=== PATIENT | male | born 1980 | race African-American/Black ===

== ENCOUNTER 2020-07-24 00:09 | Emergency (ER) | payer MEDICAID, OTHER ==
[~2020-07-24] VITALS: Ht 182.9 cm; Wt 76.0 kg
[~2020-07-24 00:09] MED LIST: ACET-3161; ALBUTEROL; MOTRIN; VICODIN
[2020-07-24 00:14] VITALS: BP 144/101
== END 2020-07-24 00:49 | disposition left against medical advice (07) ==
LOC: ER 00:09
DX: M79.606 Pain in leg, unspecified (principal); Z53.21 Procedure and treatment not carried out due to patient leaving prior to being seen by health care provider
CPT/HCPCS: 93005

== ENCOUNTER 2024-02-03 19:55 | Emergency (ER) | payer MEDICAID ==
[~2024-02-03] VITALS: Ht 170.2 cm; Wt 66.0 kg
[~2024-02-03 19:55] MED LIST changes: -ACET-3161; -ALBUTEROL; +CHLO25CA11 MT; +FOLI-43 PO; -MOTRIN; +MULT-230 MT; +THIA100T72 PO; -VICODIN
[2024-02-03 19:57] VITALS: TEMP 98.4; O2SAT 99
[2024-02-03 20:25] LABS: BASOPHILS % 0.9 % (0.0-2.0); EOSINOPHILS % 7.3 % (0.0-5.0); HEMATOCRIT. 27.5 % (42.0-52.0); HEMOGLOBIN. 8.6 g/dL (14.0-18.0); LYMPHOCYTES % 24.1 % (20.0-50.0); MEAN CORPUSCULAR HEMOGLOBIN 22.6 pg (28.0-32.0); MEAN CORPUSCULAR HGB CONC 31.4 g/dL (31.0-37.0); MONOCYTES % 14.5 % (2.0-8.0); NEUTROPHILS % 53.2 % (40.0-76.0); PLATELET 461 x1000/uL (130-400); RED BLOOD CELL COUNT 3.81 mill/uL (4.7-6.1); RED CELL DISTRIBUTION WIDTH 26.5 % (11.6-14.6); WHITE BLOOD COUNT 10.6 x1000/uL (4.5-11.0)
[2024-02-03 20:36] LABS: INR 1.3; PARTIAL THROMBOPLASTIN TIME 36.2 sec (23.4-31.0)
[2024-02-03 20:38] LABS: ALANINE AMINOTRANSFERASE 71 IU/L (10-49); ALBUMIN 4.2 g/dL (3.2-4.8); ASPARTATE AMINOTRANSFERASE 82 IU/L (<34); BILIRUBIN TOTAL 0.4 mg/dL (0.1-1.0); CALCIUM 8.9 mg/dL (8.7-10.4); CARBON DIOXIDE 28 mEq/L (21-32); CHLORIDE 103 mEq/L (98-107); CREATININE 0.8 mg/dL (0.6-1.3); GLUCOSE 102 mg/dL (70-105); POTASSIUM 3.8 mEq/L (3.5-5.1); SODIUM 138 mEq/L (136-145); UREA NITROGEN BLOOD 10 mg/dL (9-23)
[2024-02-03 20:55] LABS: DIFFERENTIAL COMMENT 1
[2024-02-03] MEDS: HYDROCODONE/ACETAMINOPHEN 5/325MG TABLET PO ONE (22:00)
[2024-02-03 22:56] VITALS: BP 142/76; PULSE 88; RESP 14
== END 2024-02-03 22:58 | disposition home or self-care (01) ==
LOC: ER 19:57
DX: I97.630 Postprocedural hematoma of a circulatory system organ or structure following a cardiac catheterization (principal); F41.9 Anxiety disorder, unspecified; J45.909 Unspecified asthma, uncomplicated; I10 Essential (primary) hypertension
CPT/HCPCS: 36415; 71046; 80053; 85025; 86850; 86900; 99284

== ENCOUNTER 2024-03-08 15:13 | Inpatient (IN) | payer OTHER ==
[~2024-03-08] VITALS: Ht 180.3 cm; Wt 70.3 kg
[~2024-03-08 15:13] MED LIST changes: +AMLO5TAB88 MT; -CHLO25CA11 MT; +FAMO20TA8 MT; +FLUO10CA25 MT; +GABA-532 MT; +MULT-1116 MT; +OLAN10TA72 MT; +ONDA8TAB59 MT; +OXYC-662 MT; +THIA250T3 MT; +TRAM50TA3 MT; +XAR15 MT
[2024-03-08 15:52] LABS: BASOPHILS % 0.9 % (0.0-2.0); EOSINOPHILS % 2.8 % (0.0-5.0); HEMATOCRIT. 30.9 % (42.0-52.0); HEMOGLOBIN. 9.7 g/dL (14.0-18.0); LYMPHOCYTES % 24.2 % (20.0-50.0); MEAN CORPUSCULAR HEMOGLOBIN 24.8 pg (28.0-32.0); MEAN CORPUSCULAR HGB CONC 31.4 g/dL (31.0-37.0); MEAN PLATELET VOLUME 7.4 fl (7.4-10.4); MONOCYTES % 10.1 % (2.0-8.0); PLATELET 485 x1000/uL (130-400); RED BLOOD CELL COUNT 3.91 mill/uL (4.7-6.1); RED CELL DISTRIBUTION WIDTH 23.6 % (11.6-14.6); WHITE BLOOD COUNT 11.7 x1000/uL (4.5-11.0)
[2024-03-08 15:53] LABS: ADD RBC MORPHOLOGY YES; DIFFERENTIAL COMMENT 1
[2024-03-08] MEDS: MORPHINE SULFATE 4 MG/ML INJ (FOR IV/IM USE) IV STA (15:56)
[2024-03-08] MEDS: SODIUM CHLORIDE 0.9% 1,000 ML IV ONE (15:56)
[2024-03-08] MEDS: ONDANSETRON HCL 4MG/2ML INJ IV STA (15:56)
[2024-03-08 16:02] LABS: CHLORIDE 109 mEq/L (98-107); POTASSIUM 3.4 mEq/L (3.5-5.1); SODIUM 141 mEq/L (136-145)
[2024-03-08 16:03] LABS: CALCIUM 8.9 mg/dL (8.7-10.4); CARBON DIOXIDE 25 mEq/L (21-32)
[2024-03-08 16:05] LABS: D-DIMER 0.64 mg/L FEU (<0.50); INR 1.1; PROTHROMBIN TIME 11.9 sec (9.6-11.0)
[2024-03-08 16:08] LABS: CREATININE 0.8 mg/dL (0.6-1.3); GLUCOSE 106 mg/dL (70-105); UREA NITROGEN BLOOD 6 mg/dL (9-23)
[2024-03-08 16:09] LABS: LACTIC ACID 2.1 mmol/L (0.4-2.0)
[2024-03-08 16:10] LABS: ALANINE AMINOTRANSFERASE 13 IU/L (10-49); ALBUMIN 3.6 g/dL (3.2-4.8); ASPARTATE AMINOTRANSFERASE 22 IU/L (<34); BILIRUBIN TOTAL 0.7 mg/dL (0.1-1.0); PROTEIN TOTAL 7.2 g/dL (6.0-8.3)
[2024-03-08 16:11] LABS: ETHANOL BLOOD < 10 mg/dL (<10); TROPONIN I HIGH SENSITIVITY < 4 ng/L (3.0-53)
[2024-03-08 17:25] LABS: ANISOCYTOSIS 2+; HYPOCHROMASIA 1+; MICROCYTOSIS 1+; OVALOCYTES 2+; PLATELET ESTIMATE INCREASED
[2024-03-08 17:26] LABS: TROPONIN I HIGH SENSITIVITY < 4 ng/L (3.0-53)
[2024-03-08 18:55] LABS: TROPONIN I HIGH SENSITIVITY < 4 ng/L (3.0-53)
[2024-03-08] MEDS: MORPHINE SULFATE 4 MG/ML INJ (FOR IV/IM USE) IV ONE (20:44)
[2024-03-08] MEDS ORDERED: IOHEXOL-350 100 ML BOTTLE ONE (22:28)
[2024-03-08 23:30] VITALS: BP 125/85; PULSE 82; RESP 18; TEMP 96.6
[2024-03-09] MEDS ORDERED: IPRATROPIUM/ALBUTEROL 0.5-3(2.5)MG/3ML NEB HHN PRN
[2024-03-09] MEDS ORDERED: MORPHINE SULFATE 2 MG/ML CPJ (NOT FOR IM USE) IV PRN
[2024-03-09] MEDS ORDERED: ONDANSETRON HCL 4MG/2ML INJ IV PRN
[2024-03-09] MEDS ORDERED: MORPHINE SULFATE 2 MG/ML CPJ (NOT FOR IM USE) IV NR (00:15)
[2024-03-09] MEDS ORDERED: OXYCODONE HCL 5MG TABLET PO PRN (00:15)
[2024-03-09 00:41] VITALS: BP 125/85; PULSE 82; RESP 20; TEMP 96.6
[2024-03-09] MEDS: MORPHINE SULFATE 2 MG/ML CPJ (NOT FOR IM USE) IV PRN (01:16)
[2024-03-09] MEDS: DEXT 5%/0.45% NACL KCL 20MEQ/L 1,000 ML IV SCH (03:27)
[2024-03-09 04:00] VITALS: BP 128/80; PULSE 85; RESP 19; TEMP 97.3
[2024-03-09 08:00] VITALS: BP 132/98; PULSE 85; RESP 18; TEMP 97.8
[2024-03-09] MEDS ORDERED: GABAPENTIN 300MG CAPSULE PO SCH (09:00)
[2024-03-09] MEDS ORDERED: THIAMINE HCL 100MG TABLET PO SCH (09:00)
[2024-03-09] MEDS ORDERED: AMLODIPINE 5MG TABLET PO SCH (09:00)
[2024-03-09] MEDS ORDERED: ENOXAPARIN 40MG/0.4ML SYR SUBCUT SCH (09:00)
[2024-03-09] MEDS ORDERED: FLUOXETINE HCL 10 MG CAPSULE PO SCH (09:00)
[2024-03-09 12:00] VITALS: BP 138/95; PULSE 83; RESP 18; TEMP 97.5
[2024-03-09] MEDS: ONDANSETRON HCL 4MG/2ML INJ IV PRN (12:53)
[2024-03-09 16:00] VITALS: BP 130/96; PULSE 92; RESP 18; TEMP 97
[2024-03-09] MEDS ORDERED: NALOXONE HCL 0.4MG/ML VIAL IV PRN (16:15)
[2024-03-09 20:00] VITALS: BP 130/91; PULSE 88; RESP 20; TEMP 97.9
[2024-03-09] MEDS ORDERED: OLANZAPINE 10MG TABLET PO SCH (21:00)
[2024-03-10] VITALS: BP 117/81; PULSE 86; RESP 20; TEMP 97.4
[2024-03-10 04:00] VITALS: BP 97/63; PULSE 78; RESP 20; TEMP 98.1
[2024-03-10 06:05] LABS: IRON 29 ug/dL (65-175)
[2024-03-10 06:06] LABS: FOLIC ACID (FOLATE) SERUM 12.69 ng/mL (>5.38); VITAMIN B12 SERUM 590 pg/mL (211-911)
[2024-03-10 06:07] LABS: FERRITIN 335 ng/mL (22-322)
[2024-03-10 06:09] LABS: TOTAL IRON BINDING CAPACITY 263 ug/dl (250-425)
[2024-03-10] MEDS: PANTOPRAZOLE SODIUM 40 MG/VIAL IV SCH (08:27)
[2024-03-10] MEDS: KETOROLAC 30MG/ML VIAL IV PRN (13:21)
[2024-03-10] MEDS ORDERED: MAGNESIUM/ALUMINUM HYDROXIDE/SIMETHICONE 30ML UDC PO PRN (13:30)
[2024-03-10] MEDS: MAGNESIUM/ALUMINUM HYDROXIDE/SIMETHICONE 30ML UDC PO NR (15:27)
[2024-03-10 16:02] LABS: BASOPHILS % 0.9 % (0.0-2.0); DIFFERENTIAL COMMENT 0; EOSINOPHILS % 4.2 % (0.0-5.0); HEMATOCRIT. 29.4 % (42.0-52.0); HEMOGLOBIN. 9.4 g/dL (14.0-18.0); LYMPHOCYTES % 16.3 % (20.0-50.0); MEAN CORPUSCULAR HEMOGLOBIN 24.9 pg (28.0-32.0); MEAN CORPUSCULAR VOLUME 77.9 fL (80.0-94.0); MEAN PLATELET VOLUME 8.4 fl (7.4-10.4); NEUTROPHILS % 64.6 % (40.0-76.0); PLATELET 402 x1000/uL (130-400); RED BLOOD CELL COUNT 3.77 mill/uL (4.7-6.1); RED CELL DISTRIBUTION WIDTH 21.4 % (11.6-14.6); WHITE BLOOD COUNT 9.7 x1000/uL (4.5-11.0)
[2024-03-10 16:19] LABS: CALCIUM 8.6 mg/dL (8.7-10.4); CARBON DIOXIDE 25 mEq/L (21-32); CHLORIDE 106 mEq/L (98-107); POTASSIUM 3.7 mEq/L (3.5-5.1); SODIUM 137 mEq/L (136-145)
[2024-03-10 16:24] LABS: CREATININE 0.8 mg/dL (0.6-1.3)
[2024-03-10 16:25] LABS: GLUCOSE 89 mg/dL (70-105)
[2024-03-10 16:37] LABS: UREA NITROGEN BLOOD < 5 mg/dL (9-23)
[2024-03-10 20:00] VITALS: BP 137/90; PULSE 84; RESP 20; TEMP 97.5
[2024-03-11] VITALS: BP 104/69; PULSE 77; RESP 18; TEMP 97.5
[2024-03-11 04:00] VITALS: BP 116/85; PULSE 81; RESP 18; TEMP 97.8
[2024-03-11 06:57] LABS: BASOPHILS % 1.3 % (0.0-2.0); CHLORIDE 108 mEq/L (98-107); EOSINOPHILS % 6.5 % (0.0-5.0); HEMATOCRIT. 28.9 % (42.0-52.0); HEMOGLOBIN. 9.4 g/dL (14.0-18.0); LYMPHOCYTES % 20.8 % (20.0-50.0); MEAN CORPUSCULAR HEMOGLOBIN 25.1 pg (28.0-32.0); MEAN CORPUSCULAR HGB CONC 32.5 g/dL (31.0-37.0); MEAN CORPUSCULAR VOLUME 77.2 fL (80.0-94.0); MEAN PLATELET VOLUME 8.6 fl (7.4-10.4); MONOCYTES % 13.8 % (2.0-8.0); NEUTROPHILS % 57.6 % (40.0-76.0); PLATELET 398 x1000/uL (130-400); POTASSIUM 4.1 mEq/L (3.5-5.1); RED BLOOD CELL COUNT 3.74 mill/uL (4.7-6.1); RED CELL DISTRIBUTION WIDTH 22.3 % (11.6-14.6); SODIUM 138 mEq/L (136-145); WHITE BLOOD COUNT 8.1 x1000/uL (4.5-11.0)
[2024-03-11 06:58] LABS: CALCIUM 8.8 mg/dL (8.7-10.4); CARBON DIOXIDE 25 mEq/L (21-32)
[2024-03-11 07:03] LABS: CREATININE 0.7 mg/dL (0.6-1.3); GLUCOSE 93 mg/dL (70-105)
[2024-03-11 07:05] LABS: ALANINE AMINOTRANSFERASE < 7 IU/L (10-49); ALBUMIN 3.2 g/dL (3.2-4.8); ASPARTATE AMINOTRANSFERASE 16 IU/L (<34); UREA NITROGEN BLOOD < 5 mg/dL (9-23)
[2024-03-11 07:06] LABS: BILIRUBIN TOTAL 0.6 mg/dL (0.1-1.0); PROTEIN TOTAL 6.7 g/dL (6.0-8.3)
[2024-03-11 07:08] LABS: INR 1.1; PROTHROMBIN TIME 12.2 sec (9.6-11.0)
[2024-03-11 07:25] LABS: DIFFERENTIAL COMMENT 1
[2024-03-11 08:00] VITALS: BP 112/89; PULSE 76; RESP 20; TEMP 96.8
[2024-03-11] MEDS: HYDROCODONE/ACETAMINOPHEN 5/325MG TABLET PO PRN (09:25)
[2024-03-11] MEDS ORDERED: SIMETHICONE 40 MG/0.6 ML 15ML ONE (13:54)
[2024-03-11 14:00] VITALS: BP 126/85; PULSE 77; RESP 18; TEMP 97.8
[2024-03-11] MEDS ORDERED: ONDANSETRON HCL 4MG/2ML INJ IV PRN (14:15)
[2024-03-11] MEDS ORDERED: MEPERIDINE HCL/PF 25MG/ML CPJ IV PRN (14:15)
[2024-03-11] MEDS ORDERED: LABETALOL 5MG/ML SYR 20 MG/4 ML SYRINGE IV PRN (14:15)
[2024-03-11] MEDS ORDERED: PROPOFOL 200MG/20ML VIAL IV ONE (14:27)
[2024-03-11] MEDS: HYDROMORPHONE HCL/PF 2MG/ML CPJ IV PRN (15:14)
[2024-03-11 16:00] VITALS: BP 106/84; PULSE 79; RESP 20; TEMP 98.1
[2024-03-11 20:00] VITALS: BP 119/87; PULSE 80; RESP 18; TEMP 97.8
[2024-03-12] VITALS: BP 108/70; PULSE 75; RESP 18; TEMP 97.1
[2024-03-12 04:00] VITALS: BP 115/85; PULSE 81; RESP 17; TEMP 98.4
[2024-03-12 08:00] VITALS: BP 119/85; PULSE 80; RESP 18; TEMP 97.8
[2024-03-12 08:38] VITALS: RESP 18
[2024-03-12] MEDS ORDERED: PANT40SU MT (09:19)
[2024-03-12] MEDS ORDERED: METO-293 MT (09:19)
[2024-03-12 09:50] VITALS: BP 119/85; PULSE 80; TEMP 97.8; O2SAT 100
[2024-03-12] MEDS ORDERED: METOCLOPRAMIDE HCL 10MG/2ML VIAL IV SCH (12:00)
[2024-03-12] MEDS ORDERED: ASCORBIC ACID 500 MG TABLET PO SCH (13:00)
[2024-03-12] MEDS ORDERED: FERROUS SULFATE 300MG/5ML UDC PO SCH (13:10)
[2024-03-14] MEDS ORDERED: ACET-2708 MT (05:22)
[2024-03-14] MEDS ORDERED: FAMO20TA8 PO (05:22)
[2024-03-14] MEDS ORDERED: TRAZ150T78 PO (05:22)
[2024-03-14] MEDS ORDERED: MORP15TA54 PO (05:22)
[2024-03-14] MEDS ORDERED: FERR325T6 MT (05:22)
== END 2024-03-12 11:00 | disposition home or self-care (01) | DRG 243 ==
LOC: ER 15:13 → 7WST 21:19 → EDBEDREQSVC 21:27 → EDBEDREQTM 21:27 → EDBEDREQ 21:27
PROVIDERS: ADMIT Internal Medicine; ATTEND Internal Medicine
PROC: 0DB58ZX Excision of Esophagus, Via Natural or Artificial Opening Endoscopic, Diagnostic (ICD-10-PCS; principal; 2024-03-11)
DX: K22.2 Esophageal obstruction (principal); C78.01 Secondary malignant neoplasm of right lung; C15.9 Malignant neoplasm of esophagus, unspecified; C78.7 Secondary malignant neoplasm of liver and intrahepatic bile duct; R62.7 Adult failure to thrive; K22.10 Ulcer of esophagus without bleeding; D50.9 Iron deficiency anemia, unspecified; R13.10 Dysphagia, unspecified; J45.909 Unspecified asthma, uncomplicated; I10 Essential (primary) hypertension; F32.A Depression, unspecified; D72.829 Elevated white blood cell count, unspecified; E87.6 Hypokalemia; F41.9 Anxiety disorder, unspecified; Z85.01 Personal history of malignant neoplasm of esophagus; Z59.01 Sheltered homelessness
CPT/HCPCS: 36415; 71045; 71275; 74176; 80048; 80053; 80061; 80320; 82607; 82728; 82746; 83540; 83550; 83605; 83880; 84484; 85025; 85379; 88305; 93005; 99285; C9113; J1170; J1885; J2270; J2405; J2704; J7030; Q9967; G0480

== ENCOUNTER 2024-05-02 07:08 | Inpatient (IN) | payer OTHER ==
[~2024-05-02] VITALS: Ht 180.3 cm; Wt 54.9 kg
[~2024-05-02 07:08] MED LIST changes: +ACET-2708 MT; -AMLO5TAB88 MT; -FAMO20TA8 MT; +FERR325T6 MT; +METO-293 MT; +MORP15TA54 PO; -MULT-230 MT; +PANT40TA51 MT; +TRAZ150T78 PO; -XAR15 MT
[2024-05-02] MEDS: MORPHINE SULFATE 4 MG/ML INJ (FOR IV/IM USE) IV STA (08:08)
[2024-05-02] MEDS: ONDANSETRON HCL 4MG/2ML INJ IV STA (08:08)
[2024-05-02] MEDS: SODIUM CHLORIDE 0.9% 2,000 ML IV ONE (08:14)
[2024-05-02 08:23] LABS: CHLORIDE 100 mEq/L (98-107); POTASSIUM 4.4 mEq/L (3.5-5.1); SODIUM 133 mEq/L (136-145)
[2024-05-02 08:24] LABS: CARBON DIOXIDE 20 mEq/L (21-32)
[2024-05-02 08:25] LABS: CALCIUM 11.9 mg/dL (8.7-10.4)
[2024-05-02 08:29] LABS: BASOPHILS % 0.5 % (0.0-2.0); DIFFERENTIAL COMMENT 0; EOSINOPHILS % 0.4 % (0.0-5.0); HEMATOCRIT. 33.2 % (42.0-52.0); HEMOGLOBIN. 10.3 g/dL (14.0-18.0); MEAN CORPUSCULAR HEMOGLOBIN 24.9 pg (28.0-32.0); MEAN CORPUSCULAR HGB CONC 31.2 g/dL (31.0-37.0); MEAN PLATELET VOLUME 8.7 fl (7.4-10.4); MONOCYTES % 8.3 % (2.0-8.0); NEUTROPHILS % 75.8 % (40.0-76.0); PLATELET 635 x1000/uL (130-400); RED BLOOD CELL COUNT 4.14 mill/uL (4.7-6.1); RED CELL DISTRIBUTION WIDTH 16.2 % (11.6-14.6); WHITE BLOOD COUNT 9.4 x1000/uL (4.5-11.0)
[2024-05-02 08:30] LABS: CREATININE 0.7 mg/dL (0.6-1.3); GLUCOSE 104 mg/dL (70-105); UREA NITROGEN BLOOD 10 mg/dL (9-23)
[2024-05-02 09:27] LABS: INR 1.2; PROTHROMBIN TIME 13.7 sec (9.6-11.0)
[2024-05-02] MEDS ORDERED: CLONIDINE 0.1MG TABLET PO PRN (12:30)
[2024-05-02] MEDS: SODIUM CHLORIDE 0.9% 1,000 ML IV SCH (13:17)
[2024-05-02] MEDS: MORPHINE SULFATE 4 MG/ML INJ (FOR IV/IM USE) IV PRN (13:18)
[2024-05-02 16:00] VITALS: BP 124/77; PULSE 84; RESP 18; TEMP 97.9
[2024-05-02] MEDS ORDERED: NALOXONE HCL 0.4MG/ML VIAL IV PRN (17:00)
[2024-05-02 17:35] VITALS: BP 124/93; PULSE 84; RESP 19; TEMP 97.9
[2024-05-02] MEDS: METOCLOPRAMIDE HCL 10MG/2ML VIAL IV SCH (18:29)
[2024-05-02] MEDS: PANTOPRAZOLE SODIUM 40 MG/VIAL IV SCH (18:29)
[2024-05-02] MEDS: SUCRALFATE 1G TABLET GT SCH (18:40)
[2024-05-02 20:00] VITALS: BP 108/75; PULSE 100; RESP 18; TEMP 96.7
[2024-05-02 20:02] LABS: HEPATITIS B SURFACE ANTIGEN NEGATIVE (Negative)
[2024-05-02 20:23] LABS: HEPATITIS C AB NON REACTIVE (Neg) (Negative)
[2024-05-03] VITALS: BP 122/88; PULSE 96; RESP 18; TEMP 97.3
[2024-05-03 04:00] VITALS: BP 115/77; PULSE 101; RESP 18; TEMP 98
[2024-05-03 05:55] LABS: BASOPHILS % 0.8 % (0.0-2.0); CHLORIDE 106 mEq/L (98-107); DIFFERENTIAL COMMENT 0; EOSINOPHILS % 2.7 % (0.0-5.0); HEMATOCRIT. 27.9 % (42.0-52.0); HEMOGLOBIN. 8.9 g/dL (14.0-18.0); LYMPHOCYTES % 11.5 % (20.0-50.0); MEAN CORPUSCULAR HEMOGLOBIN 25.3 pg (28.0-32.0); MEAN CORPUSCULAR VOLUME 79.1 fL (80.0-94.0); MEAN PLATELET VOLUME 8.2 fl (7.4-10.4); MONOCYTES % 14.4 % (2.0-8.0); NEUTROPHILS % 70.6 % (40.0-76.0); PLATELET 561 x1000/uL (130-400); RED BLOOD CELL COUNT 3.53 mill/uL (4.7-6.1); RED CELL DISTRIBUTION WIDTH 15.7 % (11.6-14.6); SODIUM 136 mEq/L (136-145); WHITE BLOOD COUNT 11.1 x1000/uL (4.5-11.0)
[2024-05-03 05:56] LABS: CALCIUM 11.1 mg/dL (8.7-10.4); CARBON DIOXIDE 23 mEq/L (21-32)
[2024-05-03 06:01] LABS: CREATININE 0.6 mg/dL (0.6-1.3); GLUCOSE 85 mg/dL (70-105); UREA NITROGEN BLOOD 9 mg/dL (9-23)
[2024-05-03 06:03] LABS: ALANINE AMINOTRANSFERASE 17 IU/L (10-49); ALBUMIN 3.6 g/dL (3.2-4.8); ASPARTATE AMINOTRANSFERASE 20 IU/L (<34); BILIRUBIN TOTAL 0.4 mg/dL (0.1-1.0)
[2024-05-03 06:04] LABS: PROTEIN TOTAL 7.5 g/dL (6.0-8.3)
[2024-05-03 08:00] VITALS: BP_SYST 114; BP_SYST 135; BP_DIAS 64; BP_DIAS 97; PULSE 64; PULSE 88; RESP 16; RESP 19; TEMP 97; TEMP 97.7
[2024-05-03] MEDS: DIATR MEGLU/DIATRIZOATE SOLN 120ML ONE (08:08)
[2024-05-03] MEDS: HEPARIN 5000 UNITS/ML VIAL SUBCUT SCH (09:55)
[2024-05-03 12:00] VITALS: BP 121/88; PULSE 50; RESP 17; TEMP 97
[2024-05-03 16:00] VITALS: BP 108/74; PULSE 97; RESP 20; TEMP 97.5
[2024-05-03] MEDS: HYDROMORPHONE HCL/PF 2MG/ML INJ IV PRN (17:17)
[2024-05-03 20:00] VITALS: BP 118/90; PULSE 76; RESP 18; TEMP 97.2
[2024-05-04] VITALS: BP 102/66; PULSE 70; RESP 18; TEMP 97.4
[2024-05-04 04:00] VITALS: BP 115/74; PULSE 65; RESP 18; TEMP 97.5
[2024-05-04 08:00] VITALS: BP 114/79; PULSE 102; RESP 19; TEMP 97.3
[2024-05-04 12:00] VITALS: BP 110/78; PULSE 99; RESP 18; TEMP 97.4
[2024-05-04 16:00] VITALS: BP 117/79; PULSE 103; RESP 18; TEMP 97.4
[2024-05-04 20:00] VITALS: BP 106/67; PULSE 92; RESP 18; TEMP 97.7
[2024-05-05] VITALS: BP 107/75; PULSE 90; RESP 19; TEMP 98.1
[2024-05-05] MEDS: VANCOMYCIN 1000MG/20ML ORAL SOLN PO SCH
[2024-05-05 04:00] VITALS: BP 98/65; PULSE 93; RESP 18; TEMP 97.7
[2024-05-05] MEDS: VANCOMYCIN 250MG/5ML ORAL SYRINGE PO SCH (06:08)
[2024-05-05 08:00] VITALS: BP 102/73; PULSE 90; RESP 18; TEMP 97.7
[2024-05-05 12:00] VITALS: BP 116/83; PULSE 100; RESP 18; TEMP 97.5
[2024-05-05 16:00] VITALS: BP 109/75; PULSE 96; RESP 18; TEMP 99.3
[2024-05-05 20:00] VITALS: BP 119/85; PULSE 76; RESP 18; TEMP 98.6
[2024-05-05] MEDS ORDERED: VANCOMYCIN 250MG/5ML ORAL SYRINGE GT SCH (22:44)
[2024-05-06] VITALS: BP 121/76; PULSE 85; RESP 17; TEMP 98.4
[2024-05-06] MEDS: VANCOMYCIN 250MG/5ML ORAL SYRINGE GT SCH
[2024-05-06 04:00] VITALS: BP 124/88; PULSE 74; RESP 17; TEMP 98.4
[2024-05-06 08:00] VITALS: BP 125/93; PULSE 93; RESP 19; TEMP 96.9
[2024-05-06 12:00] VITALS: BP 101/64; PULSE 94; RESP 15; TEMP 98.1
[2024-05-06 16:00] VITALS: PULSE 97; RESP 15; TEMP 98
[2024-05-06] MEDS: ONDANSETRON HCL 4MG/2ML INJ IV PRN (17:36)
[2024-05-06 20:00] VITALS: BP 121/74; PULSE 86; RESP 17; TEMP 98.5
[2024-05-07] VITALS: BP 135/84; PULSE 76; RESP 18; TEMP 97.8
[2024-05-07 04:00] VITALS: BP 128/74; PULSE 78; RESP 17; TEMP 98.6
[2024-05-07 08:00] VITALS: BP 101/65; PULSE 93; RESP 21; TEMP 97.5
[2024-05-07 12:00] VITALS: BP 115/82; PULSE 89; RESP 18; TEMP 97.8
[2024-05-07] MEDS: AZITHROMYCIN 500 MG TABLET GT SCH (12:03)
[2024-05-07] MEDS ORDERED: AZITHROMYCIN 500 MG TABLET GT SCH (14:00)
[2024-05-07 16:00] VITALS: BP 104/69; PULSE 86; RESP 18; TEMP 97.7
[2024-05-07] MEDS: MORPHINE SULFATE 4 MG/ML INJ (FOR IV/IM USE) IV PRN (16:14)
[2024-05-07 20:00] VITALS: BP 98/65; PULSE 94; RESP 19; TEMP 98.1
[2024-05-08] VITALS: BP 130/91; PULSE 87; RESP 19; TEMP 98.1
[2024-05-08 04:00] VITALS: BP 121/88; PULSE 88; RESP 18; TEMP 97.8
[2024-05-08 08:00] VITALS: BP 121/82; PULSE 87; RESP 18; TEMP 98.1
[2024-05-08 12:00] VITALS: BP 111/88; PULSE 94; RESP 17; TEMP 98.2
[2024-05-08 16:00] VITALS: BP 118/74; PULSE 87; RESP 17; TEMP 96.9
[2024-05-08 20:00] VITALS: BP 122/83; PULSE 99; RESP 18; TEMP 97.3
[2024-05-08] MEDS: ACETAMINOPHEN 325MG TABLET PO PRN (20:49)
[2024-05-08] MEDS: DIPHENHYDRAMINE 50MG/ML VIAL IV PRN (20:50)
[2024-05-09] VITALS: BP 120/81; PULSE 80; RESP 19; TEMP 97.4
[2024-05-09 04:00] VITALS: BP 126/83; PULSE 88; RESP 18; TEMP 97.2
[2024-05-09 08:00] VITALS: BP 123/83; PULSE 89; RESP 18; TEMP 97.1
[2024-05-09 12:00] VITALS: BP 110/75; PULSE 90; RESP 18; TEMP 97.2
[2024-05-09 16:00] VITALS: BP 106/64; PULSE 102; RESP 18; TEMP 97.4
[2024-05-09 20:00] VITALS: BP 140/80; PULSE 101; RESP 18; TEMP 98.5
[2024-05-10] VITALS: BP 128/77; PULSE 103; RESP 18; TEMP 98.3
[2024-05-10 04:00] VITALS: BP 142/104; PULSE 92; RESP 20; TEMP 98.1
[2024-05-10 08:00] VITALS: BP 138/81; PULSE 93; RESP 18; TEMP 97.9
[2024-05-10 12:00] VITALS: BP 130/71; PULSE 87; RESP 18; TEMP 97.7
[2024-05-10] MEDS ORDERED: NALOXONE HCL 0.4MG/ML VIAL IV PRN (13:45)
[2024-05-10 16:00] VITALS: BP 126/91; PULSE 92; RESP 19; TEMP 97.4
[2024-05-10 20:00] VITALS: BP 122/85; PULSE 90; RESP 19; TEMP 97.4
[2024-05-10] MEDS: HYDROMORPHONE HCL/PF 2MG/ML INJ IV PRN (22:41)
[2024-05-11] VITALS: BP 120/76; PULSE 66; RESP 18; TEMP 97.1
[2024-05-11 04:00] VITALS: BP 131/91; PULSE 60; RESP 17; TEMP 96.9
[2024-05-11 08:00] VITALS: BP 98/65; PULSE 92; RESP 19; TEMP 98.4
[2024-05-11 12:00] VITALS: BP 110/77; PULSE 87; RESP 18; TEMP 98.1
[2024-05-11 15:53] VITALS: PULSE 95; RESP 16
[2024-05-11] MEDS: IPRATROPIUM/ALBUTEROL 0.5-3(2.5)MG/3ML NEB HHN PRN (15:53)
[2024-05-11 16:00] VITALS: BP 106/67; PULSE 94; RESP 18; TEMP 98.4
[2024-05-12 08:00] VITALS: BP 97/66; PULSE 96; RESP 16; TEMP 98.2
[2024-05-12 12:00] VITALS: BP 106/76; PULSE 83; RESP 18; TEMP 97.1
[2024-05-12 16:00] VITALS: BP 103/53; PULSE 87; RESP 19; TEMP 97.7
[2024-05-12 20:00] VITALS: BP 126/90; PULSE 92; RESP 19; TEMP 97.2
[2024-05-13] VITALS: BP 128/84; PULSE 89; RESP 20; TEMP 97
[2024-05-13 04:00] VITALS: BP 117/84; PULSE 64; RESP 20; TEMP 97.3
[2024-05-13 08:00] VITALS: BP 115/81; PULSE 87; RESP 16; TEMP 98.5
[2024-05-13 12:00] VITALS: BP 137/94; PULSE 100; RESP 18; TEMP 98
[2024-05-13 16:00] VITALS: BP 122/81; PULSE 53; RESP 19; TEMP 98.4
[2024-05-13 20:00] VITALS: BP 131/91; PULSE 60; RESP 18; TEMP 97.3
[2024-05-14] VITALS: BP 110/78; PULSE 87; RESP 18; TEMP 97.3
[2024-05-14 04:00] VITALS: BP 107/70; PULSE 94; RESP 18; TEMP 97.2
[2024-05-14 08:00] VITALS: BP 106/80; PULSE 97; RESP 18; TEMP 98
[2024-05-14 12:00] VITALS: BP 116/78; PULSE 99; RESP 15; TEMP 98.4
[2024-05-14 16:00] VITALS: BP 140/90; PULSE 98; RESP 16; TEMP 98.6
[2024-05-14] MEDS: ACETAMINOPHEN 650MG/20.3ML UDC GT PRN (17:24)
[2024-05-14 20:00] VITALS: BP 112/75; PULSE 95; RESP 18; TEMP 97.9
[2024-05-15] VITALS: BP 118/77; PULSE 93; RESP 18; TEMP 97.9
[2024-05-15 04:00] VITALS: BP 129/92; PULSE 93; RESP 18; TEMP 98.5
[2024-05-15 08:00] VITALS: BP 110/82; PULSE 92; RESP 18; TEMP 98.2
[2024-05-15 16:00] VITALS: BP 123/86; PULSE 94; RESP 18; TEMP 98.1
[2024-05-15] MEDS ORDERED: NALOXONE HCL 0.4MG/ML 1ML VIAL IV NR (17:30)
[2024-05-15] MEDS ORDERED: NALOXONE HCL 0.4MG/ML VIAL IV PRN (17:30)
[2024-05-15] MEDS: HYDROMORPHONE HCL/PF 2MG/ML INJ IV PRN (18:11)
[2024-05-15 20:00] VITALS: BP 121/82; PULSE 95; RESP 18; TEMP 90.1
[2024-05-16] VITALS: BP 124/84; PULSE 96; RESP 18; TEMP 97.6
[2024-05-16 04:00] VITALS: BP 119/82; PULSE 94; RESP 18; TEMP 98
[2024-05-16 08:00] VITALS: BP 124/86; PULSE 96; RESP 18; TEMP 97.8
[2024-05-16 12:00] VITALS: BP 141/91; PULSE 91; RESP 18; TEMP 97.9
[2024-05-16 16:00] VITALS: BP 124/85; PULSE 94; RESP 16; TEMP 97.8
[2024-05-16 20:00] VITALS: BP 135/94; PULSE 86; RESP 19; TEMP 98.1
[2024-05-17] VITALS: BP 140/95; PULSE 92; RESP 20; TEMP 98.9
[2024-05-17 04:00] VITALS: BP 121/78; PULSE 86; RESP 20; TEMP 98.8
[2024-05-17 08:00] VITALS: BP 110/52; PULSE 84; RESP 16; TEMP 98.2
[2024-05-17 12:00] VITALS: BP 121/84; PULSE 89; RESP 16; TEMP 97.8
[2024-05-17 20:00] VITALS: BP 127/86; PULSE 101; RESP 20; TEMP 97.3
[2024-05-18 08:00] VITALS: BP 135/79; PULSE 62; RESP 20; TEMP 98.1
[2024-05-18 12:00] VITALS: BP 132/83; PULSE 56; RESP 20; TEMP 97.1
[2024-05-18 16:00] VITALS: BP 125/97; PULSE 103; RESP 20; TEMP 97.9
[2024-05-18 20:00] VITALS: BP 128/90; PULSE 101; RESP 18; TEMP 97.5
[2024-05-19] VITALS: BP 123/66; PULSE 54; RESP 18; TEMP 97.2
[2024-05-19 08:00] VITALS: BP 126/89; PULSE 114; RESP 18; TEMP 97.4
[2024-05-19 09:56] VITALS: BP 126/89; PULSE 114; RESP 20; TEMP 97.4
[2024-05-19 12:06] VITALS: BP 125/89; PULSE 117; RESP 18; TEMP 99.1
[2024-05-19 16:20] VITALS: BP 118/80; PULSE 103; RESP 18; TEMP 98.3
[2024-05-19 20:00] VITALS: BP 118/83; PULSE 100; RESP 17; TEMP 98.6
[2024-05-20] VITALS (7 sets, daily range): BP systolic 111–137; BP diastolic 66–98; PULSE 98–110; RESP 18–20; TEMP 98.4–102.7
[2024-05-20 14:26] LABS: CLARITY URINE TURBID (CLEAR); COLOR URINE YELLOW (YELLOW); GLUCOSE URINE NEGATIVE (NEGATIVE); KETONES URINE NEGATIVE (NEGATIVE); LEUKOCYTE ESTERASE URINE NEGATIVE (NEGATIVE); NITRITE URINE NEGATIVE (NEGATIVE); OCCULT BLOOD URINE NEGATIVE (NEGATIVE); PROTEIN URINE NEGATIVE (NEGATIVE); UROBILINOGEN URINE 0.2 E.U./dL (0.2-1.0)
[2024-05-20 14:38] LABS: AMORPHOUS SEDIMENT URINE 3+ /lpf; BACTERIA URINE NONE SEEN; CALCIUM OXALATE CRYSTALS URINE 1+ /lpf; RBC URINE 0-2 /hpf (0-2); SQUAMOUS EPITHELIAL CELL URINE RARE /lpf (RARE/1+); WBC URINE 0-2 /hpf (0-2); YEAST URINE NONE SEEN
[2024-05-21] VITALS: BP 146/96; PULSE 107; RESP 20; TEMP 96.9
[2024-05-21 04:00] VITALS: BP 120/88; RESP 18; TEMP 98
[2024-05-21 08:00] VITALS: BP 111/73; PULSE 62; RESP 18; TEMP 99.3
[2024-05-21] MEDS ORDERED: NALOXONE HCL 0.4MG/ML VIAL IV PRN (09:30)
[2024-05-21] MEDS: HYDROMORPHONE HCL/PF 2MG/ML INJ IV PRN (09:51)
[2024-05-21 12:00] VITALS: BP 105/75; PULSE 100; RESP 18; TEMP 97.9
[2024-05-21 16:00] VITALS: BP 117/82; PULSE 102; RESP 20; TEMP 98.6
[2024-05-21 20:00] VITALS: BP 112/70; PULSE 110; RESP 19; TEMP 100
[2024-05-21 20:40] LABS: BASOPHILS % 1.1 % (0.0-2.0); DIFFERENTIAL COMMENT 0; EOSINOPHILS % 0.4 % (0.0-5.0); HEMATOCRIT. 25.5 % (42.0-52.0); HEMOGLOBIN. 8.3 g/dL (14.0-18.0); MEAN CORPUSCULAR HEMOGLOBIN 23.9 pg (28.0-32.0); MEAN CORPUSCULAR HGB CONC 32.5 g/dL (31.0-37.0); MEAN CORPUSCULAR VOLUME 73.6 fL (80.0-94.0); MEAN PLATELET VOLUME 8.7 fl (7.4-10.4); NEUTROPHILS % 78.5 % (40.0-76.0); PLATELET 478 x1000/uL (130-400); RED BLOOD CELL COUNT 3.47 mill/uL (4.7-6.1); RED CELL DISTRIBUTION WIDTH 15.5 % (11.6-14.6); WHITE BLOOD COUNT 8.9 x1000/uL (4.5-11.0)
[2024-05-21 20:45] LABS: CHLORIDE 98 mEq/L (98-107); POTASSIUM 4.1 mEq/L (3.5-5.1); SODIUM 128 mEq/L (136-145)
[2024-05-21 20:46] LABS: CARBON DIOXIDE 26 mEq/L (21-32)
[2024-05-21 20:47] LABS: CALCIUM 9.6 mg/dL (8.7-10.4)
[2024-05-21 20:51] LABS: CREATININE 0.5 mg/dL (0.6-1.3); GLUCOSE 84 mg/dL (70-105); UREA NITROGEN BLOOD 9 mg/dL (9-23)
[2024-05-21] MEDS: ACETAMINOPHEN 650MG SUPP PR NR (21:04)
[2024-05-22] VITALS: BP 93/55; PULSE 64; RESP 18; TEMP 98.5
[2024-05-22 04:00] VITALS: BP 95/60; PULSE 61; RESP 20; TEMP 98.4
[2024-05-22 08:00] VITALS: BP 107/69; PULSE 72; RESP 16; TEMP 99.1
[2024-05-22] MEDS ORDERED: DIATR MEGLU/DIATRIZOATE SOLN 30ML ONE (11:47)
[2024-05-22] MEDS: HYDROMORPHONE HCL/PF 2MG/ML INJ IV NR (12:36)
[2024-05-22 16:00] VITALS: BP 116/83; PULSE 97; RESP 19; TEMP 98.7
[2024-05-22 20:00] VITALS: BP 131/95; PULSE 97; RESP 18; TEMP 98.6
[2024-05-22] MEDS: DEXT 5%/0.9% NACL 1,000 ML IV SCH (20:37)
[2024-05-23] VITALS (7 sets, daily range): BP systolic 95–115; BP diastolic 65–84; PULSE 91–132; RESP 13–18; TEMP 98–98.9
[2024-05-23 03:12] LABS: CHLORIDE 98 mEq/L (98-107); POTASSIUM 4.3 mEq/L (3.5-5.1); SODIUM 129 mEq/L (136-145)
[2024-05-23 03:13] LABS: CARBON DIOXIDE 26 mEq/L (21-32); INR 1.2; PROTHROMBIN TIME 13.7 sec (9.6-11.0)
[2024-05-23 03:17] LABS: HEMOGLOBIN. 8.2 g/dL (14.0-18.0); MEAN CORPUSCULAR HEMOGLOBIN 24.5 pg (28.0-32.0); MEAN CORPUSCULAR HGB CONC 32.9 g/dL (31.0-37.0); MEAN CORPUSCULAR VOLUME 74.5 fL (80.0-94.0); MEAN PLATELET VOLUME 8.8 fl (7.4-10.4); PLATELET 525 x1000/uL (130-400); RED BLOOD CELL COUNT 3.36 mill/uL (4.7-6.1); RED CELL DISTRIBUTION WIDTH 16.1 % (11.6-14.6); WHITE BLOOD COUNT 8.2 x1000/uL (4.5-11.0)
[2024-05-23 03:18] LABS: CREATININE 0.5 mg/dL (0.6-1.3); GLUCOSE 88 mg/dL (70-105); UREA NITROGEN BLOOD 8 mg/dL (9-23)
[2024-05-23 03:23] LABS: DIFFERENTIAL COMMENT 1
[2024-05-23 04:03] LABS: PLATELET ESTIMATE SLIGHTLY INCREASED
[2024-05-23 04:04] LABS: OVALOCYTES 3+; TARGET CELLS 1+
[2024-05-23 04:05] LABS: SICKLE CELLS 1+; TEAR DROP CELLS 1+
[2024-05-23] MEDS: SODIUM CHLORIDE 0.9% 500 ML IV STA (09:45)
[2024-05-23] MEDS ORDERED: MEPERIDINE HCL/PF 25MG/ML CPJ IV PRN (10:30)
[2024-05-23] MEDS ORDERED: HYDROMORPHONE HCL/PF 2MG/ML INJ IV PRN (10:30)
[2024-05-23] MEDS ORDERED: LABETALOL 5MG/ML 4ML INJ IV PRN (10:30)
[2024-05-23] MEDS ORDERED: ONDANSETRON HCL 4MG/2ML INJ IV PRN (10:30)
[2024-05-23] MEDS ORDERED: PROPOFOL 200MG/20ML VIAL IV ONE (11:27)
[2024-05-23] MEDS: HYDROMORPHONE HCL/PF 2MG/ML INJ IV PRN (12:10)
[2024-05-23] MEDS: CEFTRIAXONE 2GM/50ML 50 ML IV SCH (14:00)
[2024-05-23] MEDS: VANCOMYCIN 250MG/5ML ORAL SYRINGE PO SCH (18:00)
[2024-05-23 18:30] LABS: HEMATOCRIT 29.5 % (42.0-52.0); HEMOGLOBIN 9.2 g/dL (14.0-18.0)
[2024-05-24] VITALS (13 sets, daily range): BP systolic 91–131; BP diastolic 53–101; PULSE 102–136; RESP 16–27; TEMP 97.3–98.7
[2024-05-24] MEDS: CEFAZOLIN 2GM/100ML 100 ML IV SCH (12:44)
[2024-05-25] VITALS (12 sets, daily range): BP systolic 91–133; BP diastolic 63–91; PULSE 81–130; RESP 12–23; TEMP 96.9–102.8
[2024-05-25 09:29] LABS: CHLORIDE 102 mEq/L (98-107); POTASSIUM 3.5 mEq/L (3.5-5.1); SODIUM 134 mEq/L (136-145)
[2024-05-25 09:30] LABS: CARBON DIOXIDE 26 mEq/L (21-32)
[2024-05-25 09:31] LABS: CALCIUM 10.9 mg/dL (8.7-10.4)
[2024-05-25 09:34] LABS: HEMATOCRIT. 25.1 % (42.0-52.0); HEMOGLOBIN. 8.2 g/dL (14.0-18.0); MEAN CORPUSCULAR HEMOGLOBIN 24.1 pg (28.0-32.0); MEAN CORPUSCULAR HGB CONC 32.5 g/dL (31.0-37.0); MEAN CORPUSCULAR VOLUME 74.4 fL (80.0-94.0); MEAN PLATELET VOLUME 9.2 fl (7.4-10.4); PLATELET 325 x1000/uL (130-400); RED BLOOD CELL COUNT 3.38 mill/uL (4.7-6.1); RED CELL DISTRIBUTION WIDTH 15.9 % (11.6-14.6); WHITE BLOOD COUNT 9.5 x1000/uL (4.5-11.0)
[2024-05-25 09:35] LABS: CREATININE 0.4 mg/dL (0.6-1.3); GLUCOSE 116 mg/dL (70-105)
[2024-05-25 09:46] LABS: UREA NITROGEN BLOOD < 5 mg/dL (9-23)
[2024-05-25 10:09] LABS: DIFFERENTIAL COMMENT 1
[2024-05-25 16:23] LABS: HYPOCHROMASIA 1+; MICROCYTOSIS 2+; PLATELET ESTIMATE NORMAL
[2024-05-25] MEDS: AMIKACIN SULFATE 500 MG in SODIUM CHLORIDE 0.9% 100 ML IV NR (22:48)
[2024-05-26] VITALS (12 sets, daily range): BP systolic 86–131; BP diastolic 46–95; PULSE 82–106; RESP 15–21; TEMP 96.9–98.5
[2024-05-27] VITALS (11 sets, daily range): BP systolic 111–140; BP diastolic 84–97; PULSE 83–90; RESP 11–20; TEMP 97–98.3
[2024-05-27] MEDS ORDERED: IOHEXOL-300 50 ML BOTTLE IV ONE ×2 (13:39→13:40)
[2024-05-27] MEDS ORDERED: LIDOCAINE HCL 1% 10 MG/ML 10ML VIAL ONE ×2 (13:40→14:44)
[2024-05-27] MEDS ORDERED: LIDOCAINE 2% 6ML GLYDO MM ONE (14:07)
[2024-05-28] VITALS (11 sets, daily range): BP systolic 106–145; BP diastolic 65–99; PULSE 80–89; RESP 14–20; TEMP 97.5–98.4
[2024-05-28 06:09] LABS: CARBON DIOXIDE 27 mEq/L (21-32); CHLORIDE 106 mEq/L (98-107); POTASSIUM 3.1 mEq/L (3.5-5.1); SODIUM 139 mEq/L (136-145)
[2024-05-28 06:10] LABS: BASOPHILS % 0.6 % (0.0-2.0); DIFFERENTIAL COMMENT 0; HEMATOCRIT. 24.5 % (42.0-52.0); HEMOGLOBIN. 7.7 g/dL (14.0-18.0); LYMPHOCYTES % 10.1 % (20.0-50.0); MEAN CORPUSCULAR HEMOGLOBIN 23.1 pg (28.0-32.0); MEAN CORPUSCULAR HGB CONC 31.3 g/dL (31.0-37.0); MEAN CORPUSCULAR VOLUME 73.7 fL (80.0-94.0); MEAN PLATELET VOLUME 9.1 fl (7.4-10.4); MONOCYTES % 7.7 % (2.0-8.0); NEUTROPHILS % 80.6 % (40.0-76.0); PLATELET 469 x1000/uL (130-400); RED BLOOD CELL COUNT 3.33 mill/uL (4.7-6.1); RED CELL DISTRIBUTION WIDTH 16.1 % (11.6-14.6); WHITE BLOOD COUNT 15.7 x1000/uL (4.5-11.0)
[2024-05-28 06:11] LABS: CALCIUM 11.5 mg/dL (8.7-10.4)
[2024-05-28 06:15] LABS: CREATININE 0.5 mg/dL (0.6-1.3); GLUCOSE 103 mg/dL (70-105)
[2024-05-28 06:21] LABS: UREA NITROGEN BLOOD < 5 mg/dL (9-23)
[2024-05-28] MEDS ORDERED: HYDROCODONE/ACETAMINOPHEN 5/325MG TABLET PO PRN (11:15)
[2024-05-28] MEDS ORDERED: NALOXONE HCL 0.4MG/ML VIAL IV PRN (12:00)
[2024-05-28] MEDS: KCL 20MEQ/100ML PREMIX 100 ML IV SCH (12:48)
[2024-05-29] VITALS (7 sets, daily range): BP systolic 122–141; BP diastolic 78–99; PULSE 79–88; RESP 16–21; TEMP 97.8–98.6
[2024-05-30] VITALS: BP 140/93; PULSE 81; RESP 16; TEMP 99.2
[2024-05-30 04:00] VITALS: BP 139/96; PULSE 80; RESP 15; TEMP 99
[2024-05-30 12:00] VITALS: BP 141/96; PULSE 81; RESP 18; TEMP 97.6
[2024-05-30 16:00] VITALS: BP 132/90; PULSE 85; RESP 18; TEMP 96.7
[2024-05-30] MEDS: DIPHENHYDRAMINE 50MG/ML VIAL IM PRN (19:39)
[2024-05-31] VITALS: BP 130/82; PULSE 82; RESP 20; TEMP 97.3
[2024-05-31 04:00] VITALS: BP 125/91; PULSE 79; RESP 18; TEMP 97.3
[2024-05-31] MEDS: DIPHENHYDRAMINE 50MG/ML VIAL IV PRN (06:18)
[2024-05-31 08:00] VITALS: BP 117/80; PULSE 75; RESP 20; TEMP 97.7
[2024-05-31 12:00] VITALS: BP 135/90; PULSE 77; RESP 20; TEMP 97.4
[2024-05-31 16:00] VITALS: BP 154/100; PULSE 89; RESP 20; TEMP 97.6
[2024-05-31 20:00] VITALS: BP 148/103; PULSE 59; RESP 20; TEMP 97.9
[2024-06-01] VITALS: BP 142/97; PULSE 92; RESP 18; TEMP 98.5
[2024-06-01 04:00] VITALS: BP 138/84; PULSE 76; RESP 20; TEMP 98.7
[2024-06-01 08:00] VITALS: BP 138/93; PULSE 88; RESP 18; TEMP 98.2
[2024-06-01 12:00] VITALS: BP 147/96; PULSE 84; RESP 18; TEMP 97.9
[2024-06-01 12:39] LABS: BASOPHILS % 0.7 % (0.0-2.0); DIFFERENTIAL COMMENT 0; EOSINOPHILS % 2.2 % (0.0-5.0); HEMATOCRIT. 29.9 % (42.0-52.0); HEMOGLOBIN. 9.2 g/dL (14.0-18.0); LYMPHOCYTES % 12.6 % (20.0-50.0); MEAN CORPUSCULAR HGB CONC 30.6 g/dL (31.0-37.0); MEAN CORPUSCULAR VOLUME 75.2 fL (80.0-94.0); MEAN PLATELET VOLUME 10.4 fl (7.4-10.4); MONOCYTES % 11.1 % (2.0-8.0); NEUTROPHILS % 73.4 % (40.0-76.0); PLATELET 458 x1000/uL (130-400); RED BLOOD CELL COUNT 3.99 mill/uL (4.7-6.1); RED CELL DISTRIBUTION WIDTH 16.5 % (11.6-14.6); WHITE BLOOD COUNT 12.8 x1000/uL (4.5-11.0)
[2024-06-01 16:00] VITALS: BP 130/62; PULSE 88; RESP 18; TEMP 98.4
[2024-06-01 20:00] VITALS: BP 136/85; PULSE 91; RESP 18; TEMP 96.7
[2024-06-02] VITALS: BP 151/97; PULSE 83; RESP 18; TEMP 96.7
[2024-06-02 04:00] VITALS: BP 153/100; PULSE 84; RESP 18; TEMP 97.1
[2024-06-02 08:00] VITALS: BP 142/98; PULSE 84; RESP 18; TEMP 96.6
[2024-06-02 12:00] VITALS: BP 137/95; PULSE 87; RESP 19; TEMP 97.8
[2024-06-02] MEDS ORDERED: HYDROMORPHONE HCL/PF 2MG/ML INJ IV PRN (13:15)
[2024-06-02] MEDS: HYDROMORPHONE HCL/PF 2MG/ML INJ IV PRN (13:30)
[2024-06-02 16:00] VITALS: BP 146/98; PULSE 98; RESP 18; TEMP 99.3
[2024-06-02 20:00] VITALS: BP 142/95; PULSE 86; RESP 20; TEMP 98.4
[2024-06-03] VITALS: BP 141/98; PULSE 83; RESP 18; TEMP 97.8
[2024-06-03 04:00] VITALS: BP 135/91; PULSE 84; RESP 18; TEMP 97.9
[2024-06-03 06:43] LABS: BASOPHILS % 0.6 % (0.0-2.0); DIFFERENTIAL COMMENT 0; EOSINOPHILS % 1.7 % (0.0-5.0); HEMATOCRIT. 24.9 % (42.0-52.0); HEMOGLOBIN. 7.8 g/dL (14.0-18.0); LYMPHOCYTES % 10.3 % (20.0-50.0); MEAN CORPUSCULAR HEMOGLOBIN 22.9 pg (28.0-32.0); MEAN CORPUSCULAR HGB CONC 31.4 g/dL (31.0-37.0); MEAN CORPUSCULAR VOLUME 73.1 fL (80.0-94.0); MEAN PLATELET VOLUME 9.3 fl (7.4-10.4); MONOCYTES % 8.8 % (2.0-8.0); NEUTROPHILS % 78.6 % (40.0-76.0); PLATELET 583 x1000/uL (130-400); RED BLOOD CELL COUNT 3.41 mill/uL (4.7-6.1); RED CELL DISTRIBUTION WIDTH 16.3 % (11.6-14.6); WHITE BLOOD COUNT 14.8 x1000/uL (4.5-11.0)
[2024-06-03 08:00] VITALS: BP 133/98; PULSE 86; RESP 20; TEMP 97.2
[2024-06-03 12:00] VITALS: BP 133/92; PULSE 86; RESP 20; TEMP 97
[2024-06-03 16:00] VITALS: BP 135/104; PULSE 85; RESP 20; TEMP 97
[2024-06-03 20:00] VITALS: BP 152/96; PULSE 88; RESP 20; TEMP 98.2
[2024-06-04] VITALS: BP 123/84; PULSE 90; RESP 20; TEMP 97.9
[2024-06-04 04:00] VITALS: BP 111/75; PULSE 79; RESP 20; TEMP 97.6
[2024-06-04 08:00] VITALS: BP 78/44; PULSE 83; RESP 17; TEMP 97.4
[2024-06-04 12:00] VITALS: BP 87/59; PULSE 89; RESP 17; TEMP 96.5
[2024-06-04 16:00] VITALS: BP 148/91; PULSE 84; RESP 17; TEMP 97.6
[2024-06-04 20:00] VITALS: BP 130/85; PULSE 76; RESP 20; TEMP 98.5
[2024-06-05] VITALS: BP 135/81; PULSE 107; RESP 20; TEMP 98.7
[2024-06-05 04:00] VITALS: BP 119/85; PULSE 85; RESP 20; TEMP 98.9
[2024-06-05 08:20] VITALS: BP 132/92; PULSE 91; RESP 18; TEMP 97.8
[2024-06-05 12:00] VITALS: BP 129/89; PULSE 104; RESP 18; TEMP 97.4
[2024-06-05 16:00] VITALS: BP 155/91; PULSE 86; RESP 18; TEMP 98
[2024-06-06] VITALS: BP_SYST 118; PULSE 101; RESP 20; TEMP 99.1
[2024-06-06 04:00] VITALS: BP 130/92; PULSE 98; RESP 20; TEMP 97.2
[2024-06-06 08:00] VITALS: BP 135/91; PULSE 94; RESP 17; TEMP 98.9
[2024-06-06 12:00] VITALS: BP 134/91; PULSE 102; RESP 17; TEMP 99.1
[2024-06-06 16:00] VITALS: BP 149/96; PULSE 101; RESP 17; TEMP 98.4
[2024-06-07] VITALS: BP 93/61; PULSE 100; RESP 18; TEMP 97.5
[2024-06-07 04:00] VITALS: BP 157/101; PULSE 97; RESP 18; TEMP 98.1
[2024-06-07 08:00] VITALS: BP 139/98; PULSE 98; RESP 16; TEMP 97.9
[2024-06-07 12:00] VITALS: BP 149/101; PULSE 97; RESP 20; TEMP 97.7
[2024-06-07] MEDS: DILTIAZEM HCL 30MG TABLET PO SCH (14:04)
[2024-06-07 16:00] VITALS: BP 137/95; PULSE 90; RESP 20; TEMP 98.8
[2024-06-07] MEDS: CEFAZOLIN 2GM/100ML 100 ML IV SCH (16:05)
[2024-06-07] MEDS ORDERED: NALOXONE HCL 0.4MG/ML VIAL IV PRN (16:15)
[2024-06-07] MEDS ORDERED: HYDROMORPHONE HCL/PF 2MG/ML INJ IV PRN (16:15)
[2024-06-07] MEDS: HYDROMORPHONE HCL/PF 2MG/ML INJ IV PRN (16:36)
[2024-06-07 20:00] VITALS: BP 139/97; PULSE 95; RESP 20; TEMP 97.8
[2024-06-08] VITALS (9 sets, daily range): BP systolic 137–152; BP diastolic 93–102; PULSE 91–102; RESP 18; TEMP 97.2–98.5
[2024-06-08 07:27] LABS: BASOPHILS % 0.9 % (0.0-2.0); DIFFERENTIAL COMMENT 0; EOSINOPHILS % 1.9 % (0.0-5.0); LYMPHOCYTES % 9.7 % (20.0-50.0); MEAN CORPUSCULAR HEMOGLOBIN 22.7 pg (28.0-32.0); MEAN CORPUSCULAR HGB CONC 31.4 g/dL (31.0-37.0); MEAN CORPUSCULAR VOLUME 72.5 fL (80.0-94.0); MEAN PLATELET VOLUME 9.1 fl (7.4-10.4); MONOCYTES % 12.8 % (2.0-8.0); NEUTROPHILS % 74.7 % (40.0-76.0); PLATELET 402 x1000/uL (130-400); RED BLOOD CELL COUNT 3.01 mill/uL (4.7-6.1); RED CELL DISTRIBUTION WIDTH 16.5 % (11.6-14.6); WHITE BLOOD COUNT 11.2 x1000/uL (4.5-11.0)
[2024-06-08 07:44] LABS: CALCIUM 10.1 mg/dL (8.7-10.4); CHLORIDE 102 mEq/L (98-107); POTASSIUM 2.9 mEq/L (3.5-5.1); SODIUM 136 mEq/L (136-145)
[2024-06-08 07:45] LABS: CARBON DIOXIDE 27 mEq/L (21-32)
[2024-06-08 07:50] LABS: CREATININE 0.4 mg/dL (0.6-1.3); GLUCOSE 108 mg/dL (70-105)
[2024-06-08 08:00] LABS: UREA NITROGEN BLOOD < 5 mg/dL (9-23)
[2024-06-08 08:02] LABS: HEMATOCRIT. 21.9 % (42.0-52.0); HEMOGLOBIN. 6.9 g/dL (14.0-18.0)
[2024-06-09] VITALS: BP 152/98; PULSE 96; RESP 18; TEMP 97.3
[2024-06-09 04:02] VITALS: BP 144/102; PULSE 90; RESP 18; TEMP 97.3
[2024-06-09 07:22] LABS: DIFFERENTIAL COMMENT 0; EOSINOPHILS % 1.6 % (0.0-5.0); HEMATOCRIT. 28.3 % (42.0-52.0); HEMOGLOBIN. 9.1 g/dL (14.0-18.0); LYMPHOCYTES % 11.9 % (20.0-50.0); MEAN CORPUSCULAR HEMOGLOBIN 24.2 pg (28.0-32.0); MEAN CORPUSCULAR HGB CONC 32.1 g/dL (31.0-37.0); MEAN CORPUSCULAR VOLUME 75.2 fL (80.0-94.0); MEAN PLATELET VOLUME 9.6 fl (7.4-10.4); NEUTROPHILS % 71.5 % (40.0-76.0); PLATELET 404 x1000/uL (130-400); RED BLOOD CELL COUNT 3.76 mill/uL (4.7-6.1); RED CELL DISTRIBUTION WIDTH 18.2 % (11.6-14.6); WHITE BLOOD COUNT 12.4 x1000/uL (4.5-11.0)
[2024-06-09 07:31] LABS: CHLORIDE 101 mEq/L (98-107); POTASSIUM 3.5 mEq/L (3.5-5.1); SODIUM 135 mEq/L (136-145)
[2024-06-09 07:32] LABS: CARBON DIOXIDE 26 mEq/L (21-32)
[2024-06-09 07:33] LABS: CALCIUM 10.5 mg/dL (8.7-10.4)
[2024-06-09 07:37] LABS: CREATININE 0.4 mg/dL (0.6-1.3)
[2024-06-09 07:38] LABS: GLUCOSE 93 mg/dL (70-105)
[2024-06-09 07:49] LABS: UREA NITROGEN BLOOD < 5 mg/dL (9-23)
[2024-06-09 08:00] VITALS: BP 138/97; PULSE 92; RESP 18; TEMP 97.7
[2024-06-09 12:00] VITALS: BP 140/95; PULSE 89; RESP 18; TEMP 97.8
[2024-06-09 16:00] VITALS: BP 142/98; PULSE 91; RESP 18; TEMP 99.6
[2024-06-09 20:00] VITALS: BP 137/93; PULSE 98; RESP 20; TEMP 97.9
[2024-06-10] VITALS: BP_SYST 132; BP_SYST 139; BP_DIAS 97; BP_DIAS 99; PULSE 100; PULSE 99; RESP 20; TEMP 97.5
[2024-06-10 04:00] VITALS: BP 132/95; PULSE 99; RESP 20; TEMP 97.5
[2024-06-10 07:43] LABS: BASOPHILS % 1.1 % (0.0-2.0); DIFFERENTIAL COMMENT 0; EOSINOPHILS % 1.5 % (0.0-5.0); HEMATOCRIT. 29.6 % (42.0-52.0); HEMOGLOBIN. 9.4 g/dL (14.0-18.0); MEAN CORPUSCULAR HEMOGLOBIN 23.9 pg (28.0-32.0); MEAN CORPUSCULAR HGB CONC 31.8 g/dL (31.0-37.0); MEAN PLATELET VOLUME 9.5 fl (7.4-10.4); MONOCYTES % 13.9 % (2.0-8.0); NEUTROPHILS % 70.5 % (40.0-76.0); PLATELET 459 x1000/uL (130-400); RED BLOOD CELL COUNT 3.94 mill/uL (4.7-6.1); RED CELL DISTRIBUTION WIDTH 19.1 % (11.6-14.6); WHITE BLOOD COUNT 12.8 x1000/uL (4.5-11.0)
[2024-06-10 08:00] VITALS: BP 132/95; PULSE 105; RESP 17; TEMP 98.1
[2024-06-10] MEDS ORDERED: GUAIFENESIN 600MG ER TABLET PO SCH ×2 (10:15→21:00)
[2024-06-10 12:00] VITALS: BP 141/102; PULSE 110; RESP 19; TEMP 97.5
[2024-06-10] MEDS: VANCOMYCIN 250MG/5ML ORAL SYRINGE PO SCH (12:06)
[2024-06-10 16:00] VITALS: BP 133/95; PULSE 95; RESP 18; TEMP 97.7
[2024-06-10 20:00] VITALS: BP 134/96; PULSE 97; RESP 18; TEMP 98.5
[2024-06-11] VITALS: BP 132/94; PULSE 101; RESP 18; TEMP 98.7
[2024-06-11] MEDS: GUAIFENESIN 200MG/10ML SUGAR FREE UDC PO SCH (00:34)
[2024-06-11 04:00] VITALS: BP 117/80; PULSE 99; RESP 18; TEMP 96.1
[2024-06-11 08:00] VITALS: BP 125/88; PULSE 94; RESP 19; TEMP 96.9
[2024-06-11 12:00] VITALS: BP 112/78; PULSE 97; RESP 19; TEMP 98.1
[2024-06-11 16:00] VITALS: BP 112/76; PULSE 94; RESP 18; TEMP 97.6
[2024-06-12] VITALS: BP 118/88; PULSE 100; RESP 17; TEMP 97.3
[2024-06-12 04:00] VITALS: BP 126/69; PULSE 72; RESP 18; TEMP 97.6
[2024-06-12 08:00] VITALS: BP 117/82; PULSE 93; RESP 20; TEMP 98.6
[2024-06-12 12:00] VITALS: BP 135/93; PULSE 91; RESP 20; TEMP 98.7
[2024-06-12 16:00] VITALS: BP 120/92; PULSE 102; RESP 19; TEMP 97.9
[2024-06-12] MEDS: HYDROMORPHONE HCL/PF 2MG/ML INJ IV PRN (16:45)
[2024-06-12] MEDS ORDERED: NALOXONE HCL 0.4MG/ML VIAL IV PRN (16:45)
[2024-06-12 20:00] VITALS: BP 142/101; PULSE 102; RESP 19; TEMP 98.3
[2024-06-13] VITALS: BP 139/100; PULSE 98; RESP 18; TEMP 97.3
[2024-06-13 04:00] VITALS: BP 127/92; PULSE 100; RESP 20; TEMP 98.1
[2024-06-13 08:00] VITALS: BP 120/90; PULSE 91; RESP 20; TEMP 97.2
[2024-06-13 12:00] VITALS: BP 110/80; PULSE 94; RESP 20; TEMP 97
[2024-06-13 20:00] VITALS: BP 137/95; PULSE 111; TEMP 98.3
[2024-06-14] VITALS: BP 122/89; PULSE 102; RESP 18; TEMP 97.7
[2024-06-14 04:00] VITALS: BP 120/97; PULSE 100; RESP 20; TEMP 98.2
[2024-06-14 08:00] VITALS: BP 123/89; PULSE 97; RESP 20; TEMP 97
[2024-06-14 11:52] VITALS: BP 123/89; PULSE 97; TEMP 97; O2SAT 99
[2024-06-14 12:00] VITALS: BP 132/95; PULSE 100; RESP 20; TEMP 97.2
[2024-06-14 12:30] VITALS: BP 120/86; PULSE 97; RESP 20
== END 2024-06-14 16:00 | DRG 720 ==
LOC: ER 07:08 → 5WST 09:15 → EDBEDREQ 09:17 → EDBEDREQSVC 09:17 → EDBEDREQTM 09:17 → 7EST 16:53 → 6WST 05-17 16:45 → 5EST 05-23 15:55 → 6WST 05-30 11:43
PROVIDERS: ADMIT Internal Medicine; ATTEND Internal Medicine
PROC: 0DJ08ZZ Inspection of Upper Intestinal Tract, Via Natural or Artificial Opening Endoscopic (ICD-10-PCS; principal; 2024-05-23)
PROC: 0DH63UZ Insertion of Feeding Device into Stomach, Percutaneous Approach (ICD-10-PCS; 2024-05-27)
PROC: 0DP6XUZ Removal of Feeding Device from Stomach, External Approach (ICD-10-PCS; 2024-05-27)
PROC: 30233N1 Transfusion of Nonautologous Red Blood Cells into Peripheral Vein, Percutaneous Approach (ICD-10-PCS; 2024-06-08)
DX: A41.59 Other Gram-negative sepsis (principal); J96.01 Acute respiratory failure with hypoxia; C15.9 Malignant neoplasm of esophagus, unspecified; A04.72 Enterocolitis due to Clostridium difficile, not specified as recurrent; E46 Unspecified protein-calorie malnutrition; K22.2 Esophageal obstruction; C78.7 Secondary malignant neoplasm of liver and intrahepatic bile duct; K70.9 Alcoholic liver disease, unspecified; D50.9 Iron deficiency anemia, unspecified; F10.10 Alcohol abuse, uncomplicated; K94.22 Gastrostomy infection; J45.909 Unspecified asthma, uncomplicated; F41.9 Anxiety disorder, unspecified; M54.9 Dorsalgia, unspecified; R13.10 Dysphagia, unspecified; I10 Essential (primary) hypertension; Z59.00 Homelessness unspecified; Z85.01 Personal history of malignant neoplasm of esophagus; Z79.1 Long term (current) use of non-steroidal anti-inflammatories (NSAID); Z79.899 Other long term (current) drug therapy; Z79.891 Long term (current) use of opiate analgesic; Z85.05 Personal history of malignant neoplasm of liver; Z75.1 Person awaiting admission to adequate facility elsewhere; Z51.5 Encounter for palliative care; Z68.1 Body mass index [BMI] 19.9 or less, adult
CPT/HCPCS: 36415; 36598; 49450; 71045; 73030; 74021; 74250; 80048; 80053; 81003; 82962; 84145; 85014; 85018; 85025; 86705; 86850; 86900; 86920; 87015; 87045; 87070; 87077; 87186; 87340; 87427; 87449; 87493; 89055; 93005; 94640; 99285; C1725; C1769; C1893; C9113; J0278; J0690; J0696; J1170; J1200; J1644; J2270; J2405; J2470; J2704; J2765; J3370; J3480; J3490; J7030; J7042; J7050; P9016; Q9963; Q9967